=== PATIENT | female | born 1955 | race Caucasian/White ===

== ENCOUNTER 2023-07-16 09:20 | Outpatient (AMB) | payer MEDICARE, SELFPAY ==
[2023-07-16 09:23] VITALS: BP 118/80; PULSE 61; O2SAT 99; BMI 23.9
--- NOTE | 2023-07-16 09:23 | A.OFFVIS_ITS ---
Intake Vital Signs 07/16/23 09:23 Height 5 ft 3.5 in Weight 137 lb 0.2 oz BMI 23.9 BP 118/80 Blood Pressure Location Lt brachial Position Sitting Pulse 61 Pulse Source Pulse Oximeter Pulse Oximetry (%) 99 Oxygen Delivery Method Room Air Intake Visit Reasons: AWV Intake Note: Patient is here for an Annual Wellness Visit. 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 Patient of BREANA oLpes. Today we discussed patient's need for mammogram, bone density screening, colon cancer screening, lipid blood work, and diabetes screening. Up-to-date with immunizations. [place] of care was reviewed with the patient and she was provided with a screening schedule. Patient has a healthcare proxy in place and she was provided with a MOLST form. In addition, patient reports random forgetfulness in the past 6 months, would like to be evaluated for this. She also reports that 6 years ago she was stung by a wasp and her arm swelled up at that time she was given EpiPen, she needs prescription for a new EpiPen. ON LICENSE OF [facility] Medical History (Updated 07/16/23 @ 10:00 by FRANCIA Wooten) Cervical cancer screening Abdominal pain Surgical History History of tonsillectomy and adenoidectomy S/P CABG x 3 History of cardiac catheterization History of wisdom tooth extraction Family History Father CHF (congestive heart failure) CVD (cardiovascular disease) Hypertension Mother Hypertension CVD (cardiovascular disease) Diabetes Maternal Grandmother CVD (cardiovascular disease) Sister Hypothyroid Anxiety Social History Housing: Apartment Alcohol intake: current Alcohol intake frequency: a few times a month Patient Tobacco Use Status: Never used Tobacco e-Cigarette/Vaping Use: Never Used Second Hand Smoke Exposure: Yes service: No Current occupational status: unemployed Questionnaire Medicare Wellness Checkup [age] What gender do you identify with?: female During the past 4 weeks, how much have you been bothered by emotional problems such as feeling anxious, depressed, irritable, sad or downhearted, and blue?: slightly During the past 4 weeks, has your physical & emotional health limited your social activities with family, friends, neighbors, or groups?: not at all During the past 4 weeks, how much bodily pain have you generally had?: very mild pain During the past 4 weeks, was someone available to help you if you needed & wanted help?: yes, as much as I wanted During the past 4 weeks, what was the hardest physical activity you could do for at least 2 minutes?: moderate Can you get to places out of walking distance without help? (For eg., can you travel alone on buses, taxis or drive your car?): Yes Can you go shopping for groceries or clothes without someone's help?: Yes Can you prepare your own meals?: Yes Can you do your housework without help?: Yes Because of any health problems, do you need the help of another person with your personal care needs such as eating, bathing, dressing or getting around the house?: No Can you handle your own money without help?: Yes During the past 4 weeks, how would you rate your health in general?: very good During the past 4 weeks how have things been going for you?: pretty well Are you having difficulties driving your car?: no Do you always fasten your seat belt when you are in a car?: yes, usually During past 4 weeks, have you been bothered by the following: never: Falling or dizzy when standing up, Sexual problems? and Problems using the telephone?, seldom: Trouble eating well? and Teeth or denture problems? and sometimes: Tiredness or fatigue? Have you fallen 2 or more times in the past year?: No Are you afraid of falling?: No Are you a smoker?: no During the past 4 weeks, how many drinks of wine, beer, or other alcoholic beverages did you have?: 2-5 drinks per week Do you exercise for about 20 minutes 3 or more times a week?: yes, most of the time Have you been given information to help with the following?: yes: Keeping track of your medications? and no: Hazards in your house that might hurt you? How often do you have trouble taking medicines the way you have been told to take them?: I always take medicine as prescribed How confident are you that you can control & manage most of your health problems?: very confident What is your race?: White Mini Mental State Exam (MMSE) Orientation What is the (year) (season) (date) (day) (month)?: year, season, date, day and month Score Score: 5 Activity of Daily Living Bathing - sponge bath, tub bath or shower: receives no assistance (gets in/out by self, if usual bathing means Dressing - getting clothes from closets & drawers, including inner/outer garments & fasteners.: gets clothes & gets completely dressed without help Toileting - going to the 'toilet room' for urine/bowel elimination & cleaning self/arranging clothes: goes to toilet room, cleans self, arranges clothes without help Transfer: moves in & out of bed and chair without help (may use support object) Continence: controls urination/bowel movements completely by self Feeding: feeds self without help Total Score: 0 Information obtained from: patient Using telephone: independent Traveling: independent Shopping: independent Preparing meals: independent Housework: independent Taking medicine: independent Managing money: independent PHQ-9 Over the last 2 weeks, how often have you been bothered by any of the following problems? 1. Little interest or pleasure in doing things: not at all 2. Feeling down, depressed, or hopeless: not at all 3. Trouble falling or staying asleep, or sleeping too much: not at all 4. Feeling tired or having little energy: several days 5. Poor appetite or overeating: not at all 6. Feeling bad about yourself - or that you are a failure or have let yourself or your family down: not at all 7. Trouble concentrating on things, such as reading the newspaper or watching television: not at all 8. Moving or speaking so slowly that other people could have noticed. Or the opposite - being so fidgety or restless that you have been moving around a lot more than usual: not at all 9. Thoughts that you would be better off or of hurting yourself in some way: not at all Total score: 1 Depression Screening Interpretation: Negative Depression Screening Done: Yes 77781 - PHQ-9 Billing: Yes Source: Developed by Drs. Nash Boateng, Josephine López, Aj Lomax and colleagues, with an educational scarlett from [employer]. Review of Systems Neuro Reports as per HPI Physical Exam Vital Signs: Last Vital Signs Pulse 61 07/16/23 09:23 BP 118/80 07/16/23 09:23 Pulse Ox 99 07/16/23 09:23 Oxygen Delivery Method Room Air 07/16/23 09:23 BMI result Body Mass Index 23.9 Const General: cooperative and no acute distress Orientation/consciousness: patient oriented x3 HEENT Other: Whisper test: pass Head: Yes normocephalic and Yes atraumatic Eyes General: appearance normal, both eyes and all related structures Resp Auscultation: clear to auscultation bilaterally Cardio Rate: regular rate Rhythm: regular rhythm Heart sounds: S1 normal heart sound present and S2 normal heart sound present GI Auscultation: normal bowel sounds Neuro Other: Balance: Normal Get up and walk: able to Romberg: negative Tandem gait: able to General: patient oriented x3 Assessment & Plan Assessment & Plan (1) Adult general medical exam: Code(s): Z00.00 - Encounter for general adult medical examination without abnormal findings Plan: Repeat in 1 year (2) Post-menopausal: Code(s): Z78.0 - Asymptomatic menopausal state Plan: Bone density screen ordered (3) Screening for breast cancer: Code(s): Z12.39 - Encounter for other screening for malignant neoplasm of breast Plan: Mammogram ordered (4) Screening for hyperlipidemia: Code(s): Z13.220 - Encounter for screening for lipoid disorders Plan: Blood work ordered (5) Screening for diabetes mellitus: Code(s): Z13.1 - Encounter for screening for diabetes mellitus Plan: Blood work ordered (6) Screening for colon cancer: Code(s): Z12.11 - Encounter for screening for malignant neoplasm of colon Plan: GI referral (7) HTN (hypertension): Code(s): I10 - Essential (primary) hypertension Qualifiers: Hypertension type: primary hypertension Qualified Code(s): I10 - Essential (primary) hypertension Plan: Lisinopril 5 mg daily Continue low-sodium diet and exercise as tolerated Continue to follow-up with [facility] cardiology (8) TAJ (generalized anxiety disorder): Code(s): F41.1 - Generalized anxiety disorder Plan: Fluoxetine 20 mg daily (9) Allergic reaction: Code(s): T78.40XA - Allergy, unspecified, initial encounter Plan: EpiPen sent (10) Forgetfulness: Code(s): R68.89 - Other general symptoms and signs Plan: Neurology referral Orders: Orders Lipid Panel Today Z13.220 - Encounter for screening for lipoid disorders Basic Metabolic Panel Fasting Today Z13.1 - Encounter for screening for diabetes mellitus XR DEXA axial skeleton Today Z78.0 - Asymptomatic menopausal state MM tomosynthesis screening BI Today Z12.31 - Encounter for screening mammogram for malignant neoplasm of breast Referrals Gastroenterology Referral Z12.11 - Encounter for screening for malignant neoplasm of colon Neurology Referral R68.89 - Other general symptoms and signs Medications: New epinephrine (EpiPen) 0.3 mg (0.3 mL) IM Q4H PRN 2 ea 0RF anaphylaxis T78.40XA - Allergy, unspecified, initial encounter Quality Reporting (2019) Depression/Bipolar (159/160/161/177) PHQ-9: Total score: 1 Coding Level of Care Code Medicare Subsequent (G0439) Est Pt Level 3 (48954) Diagnoses Adult general medical exam Z00.00 Post-menopausal Z78.0 Screening for breast cancer Z12.39 Screening for hyperlipidemia Z13.220 Screening for diabetes mellitus Z13.1 Screening for colon cancer Z12.11 Primary hypertension I10 Hypertension type: primary hypertension TAJ (generalized anxiety disorder) F41.1 Allergic reaction T78.40XA Forgetfulness R68.89 CPT Codes Advance Care Planning - Time spent: 1-15 minutes, not on file ([id number]) Advance Care Planning Advance Care Planning discussion: Exists, not on file Date of discussion: 07/16/23 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
== END 2023-07-16 09:53 | disposition home or self-care (01) ==
PROVIDERS: PCP Physician Assistant; Visit Provider Nurse Practitioner Family
DX: Z00.00 Encounter for general adult medical examination without abnormal findings (principal); Z78.0 Asymptomatic menopausal state; Z12.39 Encounter for other screening for malignant neoplasm of breast; Z13.220 Encounter for screening for lipoid disorders; R68.89 Other general symptoms and signs; Z13.1 Encounter for screening for diabetes mellitus; Z12.11 Encounter for screening for malignant neoplasm of colon; I10 Essential (primary) hypertension; F41.1 Generalized anxiety disorder; T78.40XA Allergy, unspecified, initial encounter
CPT/HCPCS: 1124F; 99213; G0439

== ENCOUNTER 2023-09-03 07:58 | Outpatient (REF) | payer MEDICARE, SELFPAY ==
--- NOTE | ~2023-09-03 | MM_ITS ---
EXAMINATION: MM SCREENING DIGITAL BREAST TOMOSYNTHESIS, BILATERAL CLINICAL INFORMATION: Screening. Asymptomatic. COMPARISON: Mammography: There are no prior mammograms available for comparison. TECHNIQUE: Digital breast tomosynthesis is performed in both the craniocaudal and mediolateral oblique views along with computer-aided detection (CAD). Synthesized 2D images are generated from the tomosynthesis. FINDINGS: There are scattered areas of fibroglandular density (ACR BI-RADS breast composition Category b). There are no significant masses, abnormal calcifications, or other abnormalities. There are bilateral benign calcifications. MM/MM tomosynthesis screening BI IMPRESSION: No mammographic evidence of malignancy. ASSESSMENT: BI-RADS BI-RADS 2 - Benign Findings RECOMMENDATION: Routine annual mammography screening. 1 year F/U This examination should not preclude the clinical evaluation of a suspicious palpable abnormality. This patient's information was entered into a reminder system with a target due date for their next mammogram.
--- NOTE | ~2023-09-03 | MM_ITS ---
EXAMINATION: BONE DENSITOMETRY CLINICAL INDICATION: Asymptomatic menopausal state. COMPARISON: This is the patient's baseline examination. TECHNIQUE: Using a exozet DXA System (software version: 13.1) manufactured by [employer], dual-energy x-ray absorptiometry was performed of the lumbar spine and left hip. The images are of good technical quality. Summary results are attached. FINDINGS: LEFT FEMUR, NECK: BMD 0.899 g/cm2, Z-score 0.8, T-score -1.0, normal. LEFT FEMUR, TOTAL: BMD 1.006 g/cm2, Z-score 1.6, T-score 0.0, normal. AP SPINE L1-L4: BMD 1.092 g/cm2, Z-score 1.1, T-score -0.7, normal. IDENTIFIED RISK FACTORS: Menopause. HISTORY OF FRACTURE: None listed. MEDICATIONS: Vitamin D. MM/XR DEXA axial skeleton IMPRESSION: 1. DIAGNOSIS: Normal bone density based on the lowest T-score value of -1.0 in the femoral neck applying World Health Organization criteria. 2. 10-YEAR FRACTURE RISK PREDICTION, FRAX: According to the guidelines, FRAX calculation should only be performed on patients in the osteopenia bone density category. Therefore, FRAX was not performed on this patient. 3. Treatment Recommendations: NOF guidelines recommend consideration for treatment in postmenopausal women and men age 50 and older presenting with the following: -A hip or vertebral (clinical or morphometric) fracture. -T-score less than or equal to -2.5 at the femoral neck or spine after appropriate evaluation to exclude secondary causes. -Low bone mass at the hip or spine and a 10-year fracture probability by FRAX of greater than or equal to 3% for hip fracture or greater than or equal to 20% for major osteoporotic fracture based on the [place] adapted WHO algorithm. 4. Other Recommendations: All treatment decisions require clinical judgment and consideration of individual patient factors, including patient preferences, comorbidities, previous drug use, risk factors not captured in the FRAX model (e.g. frailty, falls, vitamin D deficiency, increased bone turnover, interval significant decline in bone density) and possible under or overestimation of fracture risk by FRAX. FUTURE SCAN RECOMMENDATION: People with diagnosed cases of osteoporosis or at high risk for fracture should have regular bone mineral density tests. For patients eligible for Medicare, routine testing is allowed once every 2 years. The testing frequency can be increased to one year for patients who have rapidly progressing disease, those who are receiving or discontinuing medical therapy to restore bone mass, or have additional risk factors.
== END 2023-09-03 07:59 | disposition home or self-care (01) ==
LOC: HO.MAMMO 07:58
PROVIDERS: PCP Physician Assistant; Visit Provider Nurse Practitioner Family
DX: Z12.31 Encounter for screening mammogram for malignant neoplasm of breast (principal); Z13.820 Encounter for screening for osteoporosis; Z78.0 Asymptomatic menopausal state
CPT/HCPCS: 36415; 77063; 77067; 77080; 80048; 80061

== ENCOUNTER → 2023-09-03 08:15 | Outpatient (BNV) | payer MEDICARE, SELFPAY | PROVIDERS: PCP Physician Assistant; Visit Provider Radiology Diagnostic Radiology | DX: Z12.31 Encounter for screening mammogram for malignant neoplasm of breast (principal) | CPT/HCPCS: 77063; 77067 ==

== ENCOUNTER 2023-09-03 08:39 | Outpatient (REF) | payer MEDICARE, SELFPAY ==
[2023-09-03 09:43] LABS: Anion Gap 10 (12-20); Blood Urea Nitrogen 19 mg/dL (9-16); Calcium 8.9 mg/dL (8.4-10.2); Carbon Dioxide 26 mmol/L (22-29); Chloride 108 mmol/L (96-108); Cholesterol 183 mg/dL (<200); Estimated Glomerular Filt Rate > 60; Glucose Fasting 105 mg/dL (60-99); HDL Cholesterol 58 mg/dL (>40); LDL Cholesterol Calculated 107 mg/dL (<100); Potassium 3.9 mmol/L (3.3-5.1); Sodium 140 mmol/L (135-145); Triglycerides 94 mg/dL (<150)
== END 2023-09-03 08:40 | disposition home or self-care (01) ==
LOC: HO.LAB 08:39
PROVIDERS: PCP Nurse Practitioner Family; Visit Provider Nurse Practitioner Family
DX: Z13.89 Encounter for screening for other disorder (principal)
CPT/HCPCS: 36415; 80048; 80061

== ENCOUNTER 2023-09-17 09:38 | Outpatient (REF) | payer MEDICARE, SELFPAY ==
[2023-09-17 12:45] LABS: Alanine Aminotransferase 13 U/L (0-31); Albumin Level 3.9 g/dL (3.5-5.0); Alkaline Phosphatase 79 U/L (39-117); Anion Gap 11 (12-20); Aspartate Amino Transferase 16 U/L (5-31); Bilirubin Total 0.7 mg/dL (0.0-1.0); Blood Urea Nitrogen 18 mg/dL (9-16); Calcium 9.4 mg/dL (8.4-10.2); Carbon Dioxide 27 mmol/L (22-29); Chloride 109 mmol/L (96-108); Estimated Glomerular Filt Rate > 60; Glucose Random 91 mg/dL (60-115); Magnesium 2.2 mg/dL (1.6-2.6); Potassium 4.7 mmol/L (3.3-5.1); Sodium 142 mmol/L (135-145); Total Protein 7.1 g/dL (6.5-8.0)
[2023-09-17 12:51] LABS: Folate 11.8 ng/mL (> or = 4.0); Vitamin B12 335 pg/mL (200-900)
[2023-09-25 11:24] LABS: Vitamin B1 10 nmol/L (8-30)
== END 2023-09-17 09:39 | disposition home or self-care (01) ==
LOC: HO.LAB 09:38
PROVIDERS: PCP Nurse Practitioner Family; Visit Provider Nurse Practitioner Family
DX: F10.20 Alcohol dependence, uncomplicated (principal); Z79.899 Other long term (current) drug therapy
CPT/HCPCS: 36415; 80053; 82607; 82746; 83735; 84425; 99202

== ENCOUNTER 2023-09-17 09:38 | Outpatient (AMB) | payer MEDICARE, SELFPAY ==
--- NOTE | 2023-09-17 09:39 | A.OFFVISCC_ITS ---
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 Allergies clopidogrel [From PLAVIX] Allergy (Unknown, Verified 09/17/23 09:50) HIVES Medication List - Last Reconciled 09/17/23 by Gertrude Kerr NP aspirin 81 mg PO DAILY atorvastatin 80 mg PO BEDTIME 90 days epinephrine (EpiPen) 0.3 mg (0.3 mL) IM Q4H PRN fluoxetine 20 mg PO QAM lisinopril 10 mg PO DAILY HPI MAT Intake HPI Details Patient presents to [facility] to establish care PCP- Sergio Lopes, last visit in August 2023 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 She is seeking treatment because she does not want to escalate her use. She identifies her sisters as a support system for her, but does not want to tell them yet because she does not want them constantly checking in on her Denies any other substance use She has never received treatment before for substance use She is interested in a coach cleaner referral and AA She denies hx of complicated withdrawal Denies tremor/diaphoresis/withdrawal symptoms on days she goes without drinking Behavioral Health Hx She does not have any current providers, she is looking for a therapist Provided pt with a list of resources for [facility] diagnoses: anxiety, PTSD No hx of psych hospitalizations No hx or present SI/HI Medical Hx Allergic to plavix- hives She reports heart disease and HTN- controlled with lisinopril Her treatment goal is to achieve abstinence from alcohol PFSH Medical History (Updated 09/17/23 @ 10:24 by Gertrude Kerr NP) Cervical cancer screening Abdominal pain Surgical History History of tonsillectomy and adenoidectomy S/P CABG x 3 History of cardiac catheterization History of wisdom tooth extraction Family History Father CHF (congestive heart failure) CVD (cardiovascular disease) Hypertension Mother Hypertension CVD (cardiovascular disease) Diabetes Maternal Grandmother CVD (cardiovascular disease) Sister Hypothyroid Anxiety Social History Housing: Apartment Alcohol intake: current Alcohol intake frequency: a few times a month Patient Tobacco Use Status: Never used Tobacco e-Cigarette/Vaping Use: Never Used Second Hand Smoke Exposure: Yes service: No Current occupational status: unemployed Review of Systems Const Reports as per [facility] Physical Exam Vital Signs: Last Vital Signs Pulse 75 09/17/23 09:48 BP 130/74 09/17/23 09:48 Pulse Ox 98 09/17/23 09:48 Oxygen Delivery Method Room Air 09/17/23 09:48 BMI result Body Mass Index 24.1 Const General: cooperative and healthy appearing Resp Effort & Inspection: normal respiratory effort Skin General skin exam: no rashes or lesions noted Psych Appearance: grossly normal Mental Status: mental status grossly normal Speech and movement: Normal speech and movement present Affect: normal affect Attitude: cooperative Assessment & Plan Assessment & Plan (1) Alcohol use disorder, moderate, dependence: Code(s): F10.20 - Alcohol dependence, uncomplicated Plan: -Provided list of local AA meetings -Naltrexone rx sent to pharmacy -Baseline labwork ordered to check LFTs, magnesium, folate and thiamine levels -Reviewed with her to start a B-complex vitamin and take daily -Withdrawal symptoms discussed, educated her to taper her alcohol to safely stop drinking -Referral for coach cleaner -Follow up 1 week telehealth Orders: Orders Comprehensive Met. Panel 09/17/23 F10.20 - Alcohol dependence, uncomplicated Vitamin B1 09/17/23 F10.20 - Alcohol dependence, uncomplicated Vitamin B12 and Folate 09/17/23 F10.20 - Alcohol dependence, uncomplicated Magnesium 09/17/23 F10.20 - Alcohol dependence, uncomplicated Medications: New naltrexone 1/2 for the first three day, advance to full tab if well tolerated 50 mg PO DAILY 14 tabs 0RF Coding Level of Care Code New Pt Level 4 (67809) Diagnoses Alcohol use disorder, moderate, dependence F10.20
[2023-09-17 09:48] VITALS: BP 130/74; PULSE 75; O2SAT 98; BMI 24.1
--- NOTE | 2023-09-21 12:58 | MHC.AM.SUB ---
Intake Vital Signs 09/17/23 09:48 Height 5 ft 3.5 in Weight 138 lb BMI 24.1 BP 130/74 Blood Pressure Location Lt radial Position Sitting Pulse 75 Pulse Source Pulse Oximeter Pulse Oximetry (%) 98 Oxygen Delivery Method Room Air Intake Visit Reasons: MAT Intake Allergies clopidogrel [From PLAVIX] Allergy (Unknown, Verified 09/17/23 09:50) HIVES Medication List - Last Reconciled 09/17/23 by Gertrude Kerr NP aspirin 81 mg PO DAILY atorvastatin 80 mg PO BEDTIME 90 days epinephrine (EpiPen) 0.3 mg (0.3 mL) IM Q4H PRN fluoxetine 20 mg PO QAM lisinopril 10 mg PO DAILY PFSH Medical History (Updated 09/17/23 @ 10:24 by Gertrude Kerr NP) Cervical cancer screening Abdominal pain Surgical History History of tonsillectomy and adenoidectomy S/P CABG x 3 History of cardiac catheterization History of wisdom tooth extraction Family History Father CHF (congestive heart failure) CVD (cardiovascular disease) Hypertension Mother Hypertension CVD (cardiovascular disease) Diabetes Maternal Grandmother CVD (cardiovascular disease) Sister Hypothyroid Anxiety Social History Housing: Apartment Alcohol intake: current Alcohol intake frequency: a few times a month Patient Tobacco Use Status: Never used Tobacco e-Cigarette/Vaping Use: Never Used Second Hand Smoke Exposure: Yes service: No Current occupational status: unemployed Physical Exam Vital Signs: Last Vital Signs Pulse 75 09/17/23 09:48 BP 130/74 09/17/23 09:48 Pulse Ox 98 09/17/23 09:48 Oxygen Delivery Method Room Air 09/17/23 09:48 BMI result Body Mass Index 24.1 Assessment & Plan Assessment & Plan (1) Alcohol use disorder, moderate, dependence: Code(s): F10.20 - Alcohol dependence, uncomplicated Orders: Orders Comprehensive Met. Panel 09/17/23 F10.20 - Alcohol dependence, uncomplicated Vitamin B1 09/17/23 F10.20 - Alcohol dependence, uncomplicated Vitamin B12 and Folate 09/17/23 F10.20 - Alcohol dependence, uncomplicated Magnesium 09/17/23 F10.20 - Alcohol dependence, uncomplicated Medications: New naltrexone 1/2 for the first three day, advance to full tab if well tolerated 50 mg PO DAILY 14 tabs 0RF Telehealth Telehealth Location of provider rendering services: practice address Location of patient: address on file Patient Identification confirmed using: Name, : Yes Telehealth method: voice only Patient verbally consented to treatment: Yes Patient verbally consented to billing insurance company: Yes Patient informed of any privacy concerns related to visit: Yes Minutes spent on Phone/Video with Pt.: 20 Coding Level of Care Code Tele Est Pt Level 3 (42406) Diagnoses Alcohol use disorder, moderate, dependence F10.20 Time Spent (min) 30 Comment Time spent on phone, reviewing labwork, and documenting
== END 2023-09-17 10:35 | disposition home or self-care (01) ==
PROVIDERS: PCP Nurse Practitioner Family; Visit Provider Nurse Practitioner Family
DX: F10.20 Alcohol dependence, uncomplicated (principal)
CPT/HCPCS: 99204

== ENCOUNTER 2023-09-21 09:34 | Outpatient (AMB) | payer MEDICARE, SELFPAY ==
--- NOTE | 2023-09-21 13:29 | MHC.AM.SUB ---
Intake Intake Visit Reasons: MAT Visit Allergies clopidogrel [From PLAVIX] Allergy (Unknown, Verified 09/17/23 09:50) HIVES HPI MAT Visit HPI Details Patient presents via telehealth for follow up appointment She reports she had a good weekend, she went out Wednesday night and had a few drinks with her sisters She reports she was able to keep it to only a few, and did not have any other alcoholic beverages since then She expressed gratitude for the treatment she is getting and feels knowing she has people to reach out to is going to keep her strong [facility] Medical History (Updated 09/17/23 @ 10:24 by Gertrude Kerr NP) Cervical cancer screening Abdominal pain Surgical History History of tonsillectomy and adenoidectomy S/P CABG x 3 History of cardiac catheterization History of wisdom tooth extraction Family History Father CHF (congestive heart failure) CVD (cardiovascular disease) Hypertension Mother Hypertension CVD (cardiovascular disease) Diabetes Maternal Grandmother CVD (cardiovascular disease) Sister Hypothyroid Anxiety Social History Housing: Apartment Alcohol intake: current Alcohol intake frequency: a few times a month Patient Tobacco Use Status: Never used Tobacco e-Cigarette/Vaping Use: Never Used Second Hand Smoke Exposure: Yes service: No Current occupational status: unemployed Assessment & Plan Assessment & Plan (1) Alcohol use disorder, moderate, dependence: Code(s): F10.20 - Alcohol dependence, uncomplicated Plan: -Naltrexone rx sent to alternate pharmacy -Recovery supports discussed -Follow up x 1 week Medications: New naltrexone Take 1/2 tab for the first 3 days, then progress to a full tab if well tolerated 50 mg PO DAILY 30 tabs 0RF Discontinued naltrexone 1/2 for the first three day, advance to full tab if well tolerated Discontinued Reason: None 50 mg PO DAILY 14 tabs 0RF Telehealth Telehealth Location of provider rendering services: practice address Location of patient: address on file Patient Identification confirmed using: Name, : Yes Telehealth method: voice only Patient verbally consented to treatment: Yes Patient verbally consented to billing insurance company: Yes Patient informed of any privacy concerns related to visit: Yes Minutes spent on Phone/Video with Pt.: 15 Coding Level of Care Code Tele Est Pt Level 2 (47680) Diagnoses Alcohol use disorder, moderate, dependence F10.20
== END 2023-09-21 10:39 | disposition home or self-care (01) ==
PROVIDERS: PCP Nurse Practitioner Family; Visit Provider Nurse Practitioner Family
DX: F10.20 Alcohol dependence, uncomplicated (principal)
CPT/HCPCS: 99442

== ENCOUNTER → 2023-09-21 09:34 | Outpatient (BNVA) | payer MEDICARE, SELFPAY | PROVIDERS: PCP Nurse Practitioner Family; Visit Provider Nurse Practitioner Family | DX: F10.20 Alcohol dependence, uncomplicated (principal) ==

== ENCOUNTER 2023-09-28 10:09 | Outpatient (AMB) | payer MEDICARE, SELFPAY ==
--- NOTE | 2023-09-28 11:16 | MHC.AM.SUB ---
Intake Intake Visit Reasons: MAT Visit Allergies clopidogrel [From PLAVIX] Allergy (Unknown, Verified 09/17/23 09:50) HIVES HPI MAT Visit HPI Details Patient presents for follow up via telehealth She reports she took a full tab of naltrexone on Wednesday and felt nauseated all day Wednesday She has only had a beer in the last week Reports her cravings have decreased States she feels good knowing she has the support of the clinic if she needs it PFSH Medical History (Updated 09/17/23 @ 10:24 by Gertrude Kerr NP) Cervical cancer screening Abdominal pain Surgical History History of tonsillectomy and adenoidectomy S/P CABG x 3 History of cardiac catheterization History of wisdom tooth extraction Family History Father CHF (congestive heart failure) CVD (cardiovascular disease) Hypertension Mother Hypertension CVD (cardiovascular disease) Diabetes Maternal Grandmother CVD (cardiovascular disease) Sister Hypothyroid Anxiety Social History Housing: Apartment Alcohol intake: current Alcohol intake frequency: a few times a month Patient Tobacco Use Status: Never used Tobacco e-Cigarette/Vaping Use: Never Used Second Hand Smoke Exposure: Yes service: No Current occupational status: unemployed Review of Systems Const Reports as per HPI Assessment & Plan Assessment & Plan (1) Alcohol use disorder, moderate, dependence: Code(s): F10.20 - Alcohol dependence, uncomplicated Plan: -Reviewed with her to only take half of a naltrexone pill for the first few days -Discussed with her there are other treatment options if she is unable to tolerate the naltrexone -Follow up telehealth 1 week Telehealth Telehealth Location of provider rendering services: practice address Location of patient: address on file Patient Identification confirmed using: Name, : Yes Telehealth method: voice only Patient verbally consented to treatment: Yes Patient verbally consented to billing insurance company: Yes Patient informed of any privacy concerns related to visit: Yes Minutes spent on Phone/Video with Pt.: 10 Coding Level of Care Code Tele Est Pt Level 2 (84920) Diagnoses Alcohol use disorder, moderate, dependence F10.20 Time Spent (min) 20
== END 2023-09-28 10:26 | disposition home or self-care (01) ==
LOC: HO.HCC 10:10
PROVIDERS: PCP Nurse Practitioner Family; Visit Provider Nurse Practitioner Family
DX: F10.20 Alcohol dependence, uncomplicated (principal)
CPT/HCPCS: 99441

== ENCOUNTER → 2023-09-28 10:09 | Outpatient (BNVA) | payer MEDICARE, SELFPAY | PROVIDERS: PCP Nurse Practitioner Family; Visit Provider Nurse Practitioner Family | DX: F10.20 Alcohol dependence, uncomplicated (principal) ==

== ENCOUNTER 2023-10-04 09:29 | Outpatient (AMB) | payer MEDICARE, SELFPAY ==
--- NOTE | 2023-10-04 09:40 | A.OFFVISCC_ITS ---
Intake Intake Visit Reasons: mat visit Allergies clopidogrel [From PLAVIX] Allergy (Unknown, Verified 09/17/23 09:50) HIVES HPI mat visit HPI Details Patient presents via telehealth for treatment and followup She reports she had a uneventful past week, her sister was [place] from [place] so she spent time with family She took 1/4 tab of naltrexone yesterday and tolerated it well, she reports she was trying to time taking it in a way where she wouldn't get nauseated She reports feeling better physically, and has had minimal cravings for alcohol. She reports she did have a small, 1/8th of a glass of cognac with her sisters Reports her sisters are aware of her efforts to scale back alcohol use and are supportive [facility] Medical History (Updated 09/17/23 @ 10:24 by Gertrude Kerr NP) Cervical cancer screening Abdominal pain Surgical History History of tonsillectomy and adenoidectomy S/P CABG x 3 History of cardiac catheterization History of wisdom tooth extraction Family History Father CHF (congestive heart failure) CVD (cardiovascular disease) Hypertension Mother Hypertension CVD (cardiovascular disease) Diabetes Maternal Grandmother CVD (cardiovascular disease) Sister Hypothyroid Anxiety Social History Housing: Apartment Alcohol intake: current Alcohol intake frequency: a few times a month Patient Tobacco Use Status: Never used Tobacco e-Cigarette/Vaping Use: Never Used Second Hand Smoke Exposure: Yes service: No Current occupational status: unemployed Review of Systems [employer] Reports as per HPI Assessment & Plan Assessment & Plan (1) Alcohol use disorder, moderate, dependence: Code(s): F10.20 - Alcohol dependence, uncomplicated Plan: -Encouraged patient to continue taking 1/4 tab for 1-2 more days, then progress to 1/2 tab. If able to tolerate 1/2 tab, she can progress to full tab -Reviewed recovery supports -Follow up 2 weeks Telehealth Telehealth Location of provider rendering services: practice address Location of patient: address on file Patient Identification confirmed using: Name, : Yes Telehealth method: voice only Patient verbally consented to treatment: Yes Patient verbally consented to billing insurance company: Yes Patient informed of any privacy concerns related to visit: Yes Minutes spent on Phone/Video with Pt.: 10 Coding Level of Care Code Tele Est Pt Level 2 (95962) Diagnoses Alcohol use disorder, moderate, dependence F10.20 Time Spent (min) 20
== END 2023-10-04 09:42 | disposition home or self-care (01) ==
LOC: HO.HCC 09:30
PROVIDERS: PCP Nurse Practitioner Family; Visit Provider Nurse Practitioner Family
DX: F10.20 Alcohol dependence, uncomplicated (principal)
CPT/HCPCS: 99441

== ENCOUNTER → 2023-10-04 09:29 | Outpatient (BNVA) | payer MEDICARE, SELFPAY | PROVIDERS: PCP Nurse Practitioner Family; Visit Provider Nurse Practitioner Family ==

== ENCOUNTER 2023-10-08 10:58 | Outpatient (AMB) | payer MEDICARE, SELFPAY ==
--- NOTE | 2023-10-08 11:04 | A.OFFVIS_ITS ---
Intake Vital Signs 3 10/08/23 11:15 Height 5 ft 3.5 in Weight 141 lb 8.588 oz BMI 24.7 BP 129/74 Blood Pressure Location Lt brachial Position Sitting Pulse 63 Intake Visit Reasons: Colonoscopy Screening Intake Note: New patient in office for colonoscopy screening. CC: Patient denies having GI symptoms today. She has never had a colonoscopy done before. Allergies clopidogrel [From PLAVIX] Allergy (Unknown, Verified 10/08/23 11:17) HIVES HPI Colonoscopy Screening 2 HPI0 Details 68-year-old female here for [facility]ced[facility] to discuss a screening colonoscopy. She is [place] Gladys Mcc[place] [facility] [place]. PMX Hypertension Coronary artery disease High cholesterol Alcohol use disorder moderate Memory problems Generalized anxiety disorder * SURGICAL HISTORY CABG x3 Tonsillectomy and adenoidectomy Cardiac catheterization [place] teeth extraction * ALLERGIES PLAVIX * [facility] LABS: Laboratory Tests 09/17/23 10:55 Estimated GFR > 60 Total Bilirubin 0.7 AST 16 ALT 13 Alkaline Phosphata se 79 TODAY'S VISIT This is her first colonoscopy. She tried doing one earlier but got sick from the prep. No prior problems with anesthesia or sedation. No current cardiac or respiratory problems. No ID problems. There is no known FHX of CRC or polyps. [facility] Medical History Adult general medical exam Screening for breast cancer Screening for hyperlipidemia Screening for diabetes mellitus Screening for colon cancer Cervical cancer screening Abdominal pain Surgical History History of tonsillectomy and adenoidectomy S/P CABG x 3 History of cardiac catheterization History of wisdom tooth extraction Family History Father CHF (congestive heart failure) CVD (cardiovascular disease) Hypertension Mother Hypertension CVD (cardiovascular disease) Diabetes Maternal Grandmother CVD (cardiovascular disease) Sister Hypothyroid Anxiety Sister Breast cancer Social History Housing: Apartment Alcohol intake: current Alcohol intake frequency: a few times a month Patient Tobacco Use Status: Never used Tobacco e-Cigarette/Vaping Use: Never Used Second Hand Smoke Exposure: Yes service: No Current occupational status: unemployed Review of Systems Const Denies fatigue, Denies fever(s), Denies night sweats, Denies poor appetite and Denies weight loss Eyes Details: glasses Reports requires corrective lenses ENT Reports Normal hearing present, Denies dental pain, Denies dysphagia, Denies hearing loss, Denies mouth pain, Denies odynophagia, Denies throat swelling, Denies tongue swelling and Reports other (Dentition adequate) Card Reports no additional complaints Resp Reports no additional complaints GI Details: Denies abdominal pain, Denies melena, Denies bloating, Denies hematochezia, Denies constipation, Denies GI cramping, Denies dysphagia, Denies excessive flatus, Denies early satiety, Denies heartburn, Denies diarrhea, Denies nausea, Denies odynophagia, Denies vomiting and Denies hematemesis Skin/Breast Denies pruritus, Denies lesions, Denies rash and Denies jaundice Neuro Reports Normal hearing present and Denies Abnormal speech present Endo Denies fatigue Aller/Immun Denies throat swelling and Denies tongue swelling Physical Exam Vital Signs: Last Vital Signs Pulse 63 10/08/23 11:15 BP 129/74 10/08/23 11:15 BMI result Body Mass Index 24.7 Const General: cooperative, no acute distress, well developed and well groomed Nutritional Appearance: average body habitus and well nourished Orientation/consciousness: oriented to person, oriented to place and oriented to time Limitations: No language barrier HEENT Head: Yes normocephalic and Yes atraumatic Eyes General: appearance normal, both eyes and all related structures Pupils: Equal, round and reactive pupils present Neck Neck: Yes normal visual inspection and Yes no lymphadenopathy Thyroid: Thyroid normal Resp Effort & Inspection: normal respiratory effort and able to speak in complete sentences Auscultation: clear to auscultation bilaterally Cardio Rate: regular rate Rhythm: regular rhythm Heart sounds: Normal, physiologic split S2 sound present Peripheral pulses: radial pulses present and posterior tibial pulses present GI Inspection: No distended and No Abdominal panniculus present Palpation (GI): Soft to palpation, nontender, no guarding, not rigid and No hepatosplenomegaly present Percussion: Yes normal to percussion Auscultation: normal bowel sounds Rectal Exam - Female: deferred Abdomen image: 2 1. surgical scar 2. Skin General skin exam: no rashes or lesions noted, turgor normal, skin not dry, no jaundice, No spider nevi and no striae Rashes: no rashes Nails: normal Neuro General: oriented to person, oriented to place and oriented to time Cranial nerves: Yes Equal, round and reactive pupils present and Yes Normal hearing present Speech: No Abnormal speech present Extrem General: Yes normal to inspection, No clubbing, No cyanosis and No edema Psych Appearance: grossly normal and well kempt Mental Status: mental status grossly normal Speech and movement: Normal speech and movement present Affect: normal affect Attitude: cooperative Thought process: Normal thought process present and not confabulating Thought content: Normal thought content present Insight: Fair insight present (Psych) Judgement: Fair judgement present (Psych) Assessment & Plan Assessment & Plan (1) Pre-op examination: Code(s): Z01.818 - Encounter for other preprocedural examination (2) Alcohol use disorder, moderate, dependence: Code(s): F10.20 - Alcohol dependence, uncomplicated Plan This is her first colonoscopy. She tried doing one earlier but got sick from the prep. No prior problems with anesthesia or sedation. No current cardiac or respiratory problems. No ID problems. There is no known FHX of CRC or polyps. Orders: Orders 2 Colonoscopy - GI Use Only 10/08/23 Z01.818 - Encounter for other preprocedural examination Medications: New 2 sodium,potassium,mag sulfates 17.5-3.13-1.6 gram (Suprep Bowel Prep Kit) 480 mL orally; 354 mL 0RF Coding Level of Care Code New Pt Level 3 (06795) Diagnoses Pre-op examination Z01.818 Alcohol use disorder, moderate, dependence F10.20
[2023-10-08 11:15] VITALS: BP 129/74; PULSE 63; BMI 24.7
== END 2023-10-08 11:50 | disposition home or self-care (01) ==
PROVIDERS: PCP Physician Assistant; Visit Provider Nurse Practitioner
DX: Z01.818 Encounter for other preprocedural examination (principal); Z12.11 Encounter for screening for malignant neoplasm of colon; F10.20 Alcohol dependence, uncomplicated
CPT/HCPCS: 99203; 99213

== ENCOUNTER → 2023-10-08 10:58 | Outpatient (BNVA) | payer MEDICARE, SELFPAY | PROVIDERS: PCP Physician Assistant; Visit Provider Nurse Practitioner | DX: Z01.818 Encounter for other preprocedural examination (principal); F10.20 Alcohol dependence, uncomplicated | CPT/HCPCS: 99202 ==

== ENCOUNTER 2023-10-22 09:31 | Outpatient (AMB) | payer MEDICARE, SELFPAY ==
--- NOTE | 2023-10-22 09:32 | MHC.AM.SUB ---
Intake Vital Signs 10/22/23 09:37 BP 136/82 Blood Pressure Location Lt radial Position Sitting Pulse 80 Pulse Source Pulse Oximeter Pulse Oximetry (%) 98 Oxygen Delivery Method Room Air Intake Visit Reasons: mat visit Intake Note: The patient presents fort a mat visit Allergies clopidogrel [From PLAVIX] Allergy (Unknown, Verified 10/08/23 11:17) HIVES Do you need a note to return to daycare/school/sports/work: No HPI mat visit HPI Details Pt reports for treatment and follow up She reports she is doing well with her recovery, has only had 1 social drink on 2 separate occasions in the month since starting treatment She is taking 1/4 tab of naltrexone with good effect Reports occasional cravings for a glass of wine at the end of the day Doing well overall [facility] Medical History Adult general medical exam Screening for breast cancer Screening for hyperlipidemia Screening for diabetes mellitus Screening for colon cancer Cervical cancer screening Abdominal pain Surgical History History of tonsillectomy and adenoidectomy S/P CABG x 3 History of cardiac catheterization History of wisdom tooth extraction Family History Father CHF (congestive heart failure) CVD (cardiovascular disease) Hypertension Mother Hypertension CVD (cardiovascular disease) Diabetes Maternal Grandmother CVD (cardiovascular disease) Sister Hypothyroid Anxiety Sister Breast cancer Social History Housing: Apartment Alcohol intake: current Alcohol intake frequency: a few times a month Patient Tobacco Use Status: Never used Tobacco e-Cigarette/Vaping Use: Never Used Second Hand Smoke Exposure: Yes service: No Current occupational status: unemployed Review of Systems Const Reports as per HPI Physical Exam Vital Signs: Last Vital Signs Pulse 80 10/22/23 09:37 BP 136/82 10/22/23 09:37 Pulse Ox 98 10/22/23 09:37 Oxygen Delivery Method Room Air 10/22/23 09:37 Const General: cooperative and comfortable Resp Effort & Inspection: normal respiratory effort Psych Appearance: grossly normal Mental Status: mental status grossly normal Speech and movement: Normal speech and movement present Affect: normal affect Attitude: cooperative Assessment & Plan Assessment & Plan (1) Alcohol use disorder, moderate, dependence: Code(s): F10.20 - Alcohol dependence, uncomplicated Plan: -Follow up 2 weeks -Continue naltrexone as tolerated Coding Level of Care Code Est Pt Level 3 (60259) Diagnoses Alcohol use disorder, moderate, dependence F10.20
[2023-10-22 09:37] VITALS: BP 136/82; PULSE 80; O2SAT 98
== END 2023-10-22 09:57 | disposition home or self-care (01) ==
PROVIDERS: PCP Nurse Practitioner Family; Visit Provider Nurse Practitioner Family
DX: F10.20 Alcohol dependence, uncomplicated (principal)
CPT/HCPCS: 99213

== ENCOUNTER → 2023-10-22 09:31 | Outpatient (BNVA) | payer MEDICARE, SELFPAY | PROVIDERS: PCP Nurse Practitioner Family; Visit Provider Nurse Practitioner Family | DX: F10.20 Alcohol dependence, uncomplicated (principal); Z79.899 Other long term (current) drug therapy | CPT/HCPCS: 99212 ==

== ENCOUNTER 2023-11-19 09:03 | Outpatient (AMB) | payer MEDICARE, SELFPAY ==
--- NOTE | 2023-11-19 09:19 | A.OFFVISCC_ITS ---
Intake Visit Reasons: mat visit Allergies clopidogrel [From PLAVIX] Allergy (Unknown, Verified 10/08/23 11:17) HIVES [facility] HPI mat visit: Details: Patient presents via telehealth States she has been doing well in this past month Has not been drinking at home Occasinally goes out and has a single drink with friends She hasn't felt the need to have more drinks after having the one Had a difficult day at work yesterday, had a fleeting thought that maybe a glass of wine after work would be good She then recognized that it was an old pattern of thinking and was able to challenge it. Feels as though when she thinks about the taste of wine that she has an aversion to it now Feels as though the naltrexone is working, taking 25mg a day and tolerating well. [facility], [facility] Medical History Adult general medical exam Screening for breast cancer Screening for hyperlipidemia Screening for diabetes mellitus Screening for colon cancer Cervical cancer screening Abdominal pain Surgical History History of tonsillectomy and adenoidectomy S/P CABG x 3 History of cardiac catheterization History of wisdom tooth extraction Family History Father CHF (congestive heart failure) CVD (cardiovascular disease) Hypertension Mother Hypertension CVD (cardiovascular disease) Diabetes Maternal Grandmother CVD (cardiovascular disease) Sister Hypothyroid Anxiety Sister Breast cancer Social History Housing: Apartment Alcohol intake: current Alcohol intake frequency: a few times a month Patient Tobacco Use Status: Never used Tobacco e-Cigarette/Vaping Use: Never Used Second Hand Smoke Exposure: Yes service: No Current occupational status: unemployed Review of Systems Const Reports as per HPI Telehealth Telehealth Location of provider rendering services: practice address Location of patient: address on file Patient Identification confirmed using: Name, : Yes Telehealth method: voice only Patient verbally consented to treatment: Yes Patient verbally consented to billing insurance company: Yes Patient informed of any privacy concerns related to visit: Yes Minutes spent on Phone/Video with Pt.: 15 Assessment & Plan Assessment & Plan (1) Alcohol use disorder, moderate, dependence: Code(s): F10.20 - Alcohol dependence, uncomplicated Category: Medical Plan: -Follow up 1 month -Naltrexone refill sent to pharmacy -Call [facility] if any questions or concerns in the meantime Medications: Refilled naltrexone Take 1/2 tab for the first 3 days, then progress to a full tab if well tolerated 50 mg PO DAILY 30 tabs 1RF naltrexone Take 1/2 tab for the first 3 days, then progress to a full tab if well tolerated 50 mg PO DAILY 30 tabs 1RF
== END 2023-11-19 09:19 | disposition home or self-care (01) ==
LOC: HO.HCC 09:04
PROVIDERS: PCP Nurse Practitioner Family; Visit Provider Nurse Practitioner Family
DX: F10.20 Alcohol dependence, uncomplicated (principal)
CPT/HCPCS: 99442

== ENCOUNTER → 2023-11-19 09:03 | Outpatient (BNVA) | payer MEDICARE, SELFPAY | PROVIDERS: PCP Nurse Practitioner Family; Visit Provider Nurse Practitioner Family ==

== ENCOUNTER 2023-12-13 08:05 | Outpatient (AMB) | payer MEDICARE, SELFPAY ==
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
[2023-12-13 08:11] VITALS: BP 130/72; PULSE 61; RESP 16; O2SAT 99; BMI 24.4
== END 2023-12-13 08:56 | disposition home or self-care (01) ==
PROVIDERS: PCP Physician Assistant; Visit Provider Psychiatry & Neurology Neurology
DX: R41.3 Other amnesia (principal); R25.1 Tremor, unspecified; R06.83 Snoring; G47.10 Hypersomnia, unspecified; F41.9 Anxiety disorder, unspecified
CPT/HCPCS: 99204

== ENCOUNTER → 2023-12-13 08:05 | Outpatient (BNVA) | payer MEDICARE, SELFPAY | PROVIDERS: PCP Physician Assistant; Visit Provider Psychiatry & Neurology Neurology | DX: R41.3 Other amnesia (principal); R25.1 Tremor, unspecified; R06.83 Snoring; F41.9 Anxiety disorder, unspecified; G47.10 Hypersomnia, unspecified | CPT/HCPCS: 99202 ==

== ENCOUNTER 2024-01-07 10:03 | Outpatient (AMB) | payer MEDICARE, SELFPAY ==
--- NOTE | 2024-01-07 10:03 | MHC.AM.SUB ---
Intake Visit Reasons: MAT Tele Allergies clopidogrel [From PLAVIX] Allergy (Unknown, Verified 12/13/23 08:10) HIVES HPI HPI MAT Tele: Details: Patient presents via telehealth for AUD tx and follow up Reports she has been fine with ETOH use States she did have some struggles with choosing between having fun and rewarding herself with a glass of wine and with staying on track - states she still not has bought any alcohol for home since establishing care Has gone out socially and has been able to limit how many glasses of wine she had Continues to work on limiting her alcohol use Feels less tired since she has stopped drinking wine at home, feels as though she is eating more sugar now so she is working on finding ways to eat more nutritious food She is asking today if her cravings return and or strengthen, should she try taking full tab (currently takes 1/2 tab due to GI upset) [facility] Medical History (Updated 12/13/23 @ 08:44 by Jeanne Roman MD) Anxiety Hypersomnia Snoring Occasional tremors Memory change Adult general medical exam Screening for breast cancer Screening for hyperlipidemia Screening for diabetes mellitus Screening for colon cancer Cervical cancer screening Abdominal pain Surgical History History of tonsillectomy and adenoidectomy S/P CABG x 3 History of cardiac catheterization History of wisdom tooth extraction Family History Father CHF (congestive heart failure) CVD (cardiovascular disease) Hypertension Mother Hypertension CVD (cardiovascular disease) Diabetes Maternal Grandmother CVD (cardiovascular disease) Sister Hypothyroid Anxiety Sister Breast cancer Social History Housing: Apartment Alcohol intake: current Alcohol intake frequency: a few times a month Patient Tobacco Use Status: Never used Tobacco e-Cigarette/Vaping Use: Never Used Second Hand Smoke Exposure: Yes service: No Current occupational status: unemployed Review of Systems Const Reports as per HPI Telehealth Telehealth Telehealth Platform: Telephone Location of provider rendering services: practice address Location of patient: address on file Patient Identification confirmed using: Name, : Yes Telehealth method: voice only Patient verbally consented to treatment: Yes Patient informed of any privacy concerns related to visit: Yes Minutes spent on Phone/Video with Pt.: 20 Assessment & Plan Assessment & Plan (1) Alcohol use disorder, moderate, dependence: Code(s): F10.20 - Alcohol dependence, uncomplicated Category: Medical Plan: -Follow up 1 month -No refill needed at this time -Discussed with her trialing 1/2 BID, or trying full tab to see how she tolerates -Call [facility] if any questions or concerns in the meantime
== END 2024-01-07 10:22 | disposition home or self-care (01) ==
LOC: HO.HCC 10:03
PROVIDERS: PCP Physician Assistant; Visit Provider Nurse Practitioner Family
DX: F10.20 Alcohol dependence, uncomplicated (principal)
CPT/HCPCS: 99442

== ENCOUNTER → 2024-01-07 10:03 | Outpatient (BNVA) | payer MEDICARE, SELFPAY | PROVIDERS: PCP Physician Assistant; Visit Provider Nurse Practitioner Family ==

== ENCOUNTER 2024-01-31 08:53 | Outpatient (AMB) | payer MEDICARE, SELFPAY ==
--- NOTE | 2024-02-01 15:32 | A.OFFVISCC_ITS ---
Intake Visit Reasons: MAT Tele Allergies clopidogrel [From PLAVIX] Allergy (Unknown, Verified 12/13/23 08:10) HIVES HPI HPI MAT Tele: Details: Patient presents for follow up via telehealth Reports she drank too much one day and felt not good about this has been working to explore her relationship with alcohol and working towards the possibility of it not being a part of her life shared with family her current journey [facility] Medical History (Updated 12/13/23 @ 08:44 by Jeanne Roman MD) Anxiety Hypersomnia Snoring Occasional tremors Memory change Adult general medical exam Screening for breast cancer Screening for hyperlipidemia Screening for diabetes mellitus Screening for colon cancer Cervical cancer screening Abdominal pain Surgical History History of tonsillectomy and adenoidectomy S/P CABG x 3 History of cardiac catheterization History of wisdom tooth extraction Family History Father CHF (congestive heart failure) CVD (cardiovascular disease) Hypertension Mother Hypertension CVD (cardiovascular disease) Diabetes Maternal Grandmother CVD (cardiovascular disease) Sister Hypothyroid Anxiety Sister Breast cancer Social History Housing: Apartment Alcohol intake: current Alcohol intake frequency: a few times a month Patient Tobacco Use Status: Never used Tobacco e-Cigarette/Vaping Use: Never Used Second Hand Smoke Exposure: Yes service: No Current occupational status: unemployed Review of Systems [employer] Reports as per HPI and Reports no additional complaints Telehealth Telehealth Telehealth Platform: Telephone Location of provider rendering services: practice address Location of patient: address on file Patient Identification confirmed using: Name, : Yes Telehealth method: voice only Patient verbally consented to treatment: Yes Patient verbally consented to billing insurance company: Yes Patient informed of any privacy concerns related to visit: Yes Minutes spent on Phone/Video with Pt.: 20 Assessment & Plan Assessment & Plan (1) Alcohol use disorder, moderate, dependence: Code(s): F10.20 - Alcohol dependence, uncomplicated Category: Medical Plan: * will mail out resources to review related to cravings * follow up 4 weeks
== END 2024-01-31 11:15 | disposition home or self-care (01) ==
PROVIDERS: PCP Physician Assistant; Visit Provider Nurse Practitioner Psychiatric/Mental Health
DX: F10.20 Alcohol dependence, uncomplicated (principal)
CPT/HCPCS: 99442

== ENCOUNTER → 2024-01-31 08:53 | Outpatient (BNVA) | payer MEDICARE, SELFPAY | PROVIDERS: PCP Physician Assistant; Visit Provider Nurse Practitioner Psychiatric/Mental Health ==

== ENCOUNTER 2024-02-04 07:36 | Outpatient (REF) | payer MEDICARE, SELFPAY ==
--- NOTE | ~2024-02-04 | CT_ITS ---
EXAMINATION: CT HEAD WITHOUT CONTRAST CLINICAL INFORMATION: Memory changes COMPARISON: None available. TECHNIQUE: Contiguous axial imaging was performed from the skull base to vertex without intravenous administration of contrast. This CT examination was performed using dose optimization techniques as appropriate, variously including the following: *Automated exposure control *Adjustment of mA and/or kV according to patient size (this includes techniques or standardized protocols for targeted exams where dose is matched to indication/reason for exam; i.e. extremities or head) *Use of iterative reconstruction technique DLP: 818 mGy-cm FINDINGS: Mild diffuse commensurate prominence of ventricles and sulci within expected limits of normal anatomic variation is noted. No focal parenchymal lesions of the brain or abnormal extra-axial fluid collections visualized. No intracranial hemorrhage, tumors or acute infarcts noted. Minimal eccentric calcific plaque is present in the intradural segment of the left vertebral artery. Mild segmental calcific atherosclerotic plaques are present in the cavernous portions of the internal carotid arteries. The orbits and globes are normal in appearance. No extracranial soft tissue inflammatory changes visualized. No significant opacification of the visualized paranasal sinuses, mastoid air cells and middle ear cavities. No disproportionate prominence of the temporal horns of the lateral ventricles visualized to suggest hippocampal volume loss. CT/CT head/brain wo IV con IMPRESSION: Mild intracranial atherosclerosis; otherwise, normal unenhanced CT of the head.
== END 2024-02-04 07:37 | disposition home or self-care (01) ==
LOC: HO.CT 07:36
PROVIDERS: PCP Physician Assistant; Visit Provider Psychiatry & Neurology Neurology
DX: R41.3 Other amnesia (principal)
CPT/HCPCS: 70450

== ENCOUNTER → 2024-02-21 09:03 | Outpatient (REF) | payer MEDICARE, SELFPAY | LOC: HO.SL 09:03 | PROVIDERS: PCP Physician Assistant; Visit Provider Psychiatry & Neurology Neurology | DX: G47.10 Hypersomnia, unspecified (principal); R06.83 Snoring | CPT/HCPCS: 95806 ==

== ENCOUNTER 2024-02-28 08:49 | Outpatient (AMB) | payer MEDICARE, SELFPAY ==
--- NOTE | 2024-02-28 08:50 | A.OFFVISCC_ITS ---
Intake Visit Reasons: MAT Tele Allergies clopidogrel [From PLAVIX] Allergy (Unknown, Verified 12/13/23 08:10) HIVES HPI HPI MAT Tele: Details: Patient presents for follow up via telehealth Currently prescribed Naltrexone 50mg daily Reports no alcohol use doing a lot of refelction discussed recovery capitol PFSH Medical History (Updated 12/13/23 @ 08:44 by Jeanne Roman MD) Anxiety Hypersomnia Snoring Occasional tremors Memory change Adult general medical exam Screening for breast cancer Screening for hyperlipidemia Screening for diabetes mellitus Screening for colon cancer Cervical cancer screening Abdominal pain Surgical History History of tonsillectomy and adenoidectomy S/P CABG x 3 History of cardiac catheterization History of wisdom tooth extraction Family History Father CHF (congestive heart failure) CVD (cardiovascular disease) Hypertension Mother Hypertension CVD (cardiovascular disease) Diabetes Maternal Grandmother CVD (cardiovascular disease) Sister Hypothyroid Anxiety Sister Breast cancer Social History Housing: Apartment Alcohol intake: current Alcohol intake frequency: a few times a month Patient Tobacco Use Status: Never used Tobacco e-Cigarette/Vaping Use: Never Used Second Hand Smoke Exposure: Yes service: No Current occupational status: unemployed Review of Systems [employer] Reports as per HPI and Reports no additional complaints Telehealth Telehealth Telehealth Platform: Telephone Location of provider rendering services: practice address Location of patient: address on file Patient Identification confirmed using: Name, : Yes Telehealth method: voice only Patient verbally consented to treatment: Yes Patient verbally consented to billing insurance company: Yes Minutes spent on Phone/Video with Pt.: 25 Assessment & Plan Assessment & Plan (1) Alcohol use disorder, moderate, dependence: Code(s): F10.20 - Alcohol dependence, uncomplicated Category: Medical Plan: * continue naltrexone * follow up in office Medications: Changed From naltrexone Take 1/2 tab for the first 3 days, then progress to a full tab if well tolerated 50 mg PO DAILY 30 tabs 1RF To naltrexone 50 mg PO DAILY 30 tabs 1RF
== END 2024-02-28 09:21 | disposition home or self-care (01) ==
PROVIDERS: PCP Physician Assistant; Visit Provider Nurse Practitioner Psychiatric/Mental Health
DX: F10.20 Alcohol dependence, uncomplicated (principal)
CPT/HCPCS: 99443

== ENCOUNTER → 2024-02-28 08:49 | Outpatient (BNVA) | payer MEDICARE, SELFPAY | PROVIDERS: PCP Physician Assistant; Visit Provider Nurse Practitioner Psychiatric/Mental Health ==

== ENCOUNTER → 2024-03-24 19:30 | Outpatient (REF) | payer MEDICARE, SELFPAY | LOC: HO.SL 19:30 | PROVIDERS: PCP Physician Assistant; Visit Provider Psychiatry & Neurology Neurology | DX: Z13.89 Encounter for screening for other disorder (principal) ==

== ENCOUNTER 2024-04-10 08:03 | Outpatient (AMB) | payer MEDICARE, SELFPAY ==
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
[2024-04-10 08:17] VITALS: BP 118/62; PULSE 67; RESP 16; O2SAT 98; BMI 25.1
== END 2024-04-10 09:23 | disposition home or self-care (01) ==
PROVIDERS: PCP Physician Assistant; Visit Provider Psychiatry & Neurology Neurology
DX: R41.3 Other amnesia (principal); R25.1 Tremor, unspecified; F41.9 Anxiety disorder, unspecified
CPT/HCPCS: 99214; G2211

== ENCOUNTER → 2024-04-10 08:03 | Outpatient (BNVA) | payer MEDICARE, SELFPAY | PROVIDERS: PCP Physician Assistant; Visit Provider Psychiatry & Neurology Neurology | DX: R25.1 Tremor, unspecified (principal); R41.3 Other amnesia; F41.9 Anxiety disorder, unspecified | CPT/HCPCS: 99212 ==

== ENCOUNTER 2024-09-04 10:12 | Outpatient (AMB) | payer MEDICARE, SELFPAY ==
--- NOTE | 2024-09-04 10:23 | A.OFFVIS_ITS ---
Intake Vital Signs 09/04/24 10:25 Height 5 ft 3.5 in Weight 142 lb BMI 24.8 BP 120/70 Blood Pressure Location Lt brachial Position Sitting Pulse 66 Pulse Source Pulse Oximeter Temp 97.1 F Temp Source Skin Pulse Oximetry (%) 97 Oxygen Delivery Method Room Air Intake Visit Reasons: AWV Intake Note: Patient is here for an Annual Wellness Visit. It Applications Developer Required: No Inside Polisher: Inside Polisher offered & declined Accompanied by: Self / Same As Patient Allergies clopidogrel [From PLAVIX] Allergy (Unknown, Verified 09/04/24 10:35) HIVES Medication List - Last Reconciled 09/04/24 by Sergio Lopes PA-C aspirin 81 mg PO DAILY atorvastatin 80 mg PO BEDTIME 90 days epinephrine (EpiPen) 0.3 mg (0.3 mL) IM Q4H PRN fluoxetine 40 mg PO DAILY lisinopril 10 mg PO DAILY naltrexone 50 mg PO DAILY HPI AWV HPI Details Patient is a 69-year-old female here today for an annual wellness visit. Today we discussed end of life planning, specialist list, and her comprehensive care plan which was scanned into patient's documents.. Colorectal cancer screening: Has yet to be scheduled for colonoscopy. She promises to reach back out to Gastroenterology Vaccines: Up-to-date with COVID vaccine, flu vaccine, tetanus vaccine and shingles vaccine Laboratory Tests 09/03/23 09/17/23 08:55 10:55 Creatinine 0.79 Random Glucose 91 Cholesterol 183 LDL Cholesterol, C alc 107 H HPI Comments History of Present Illness Details reviewed past medical history- yes reviewed surgical / hospitalization history- yes reviewed current medications- yes reviewed family history- yes home safety throw rugs? grab bars? raised toilet seat? working smoke detectors? activities of daily living difficulty bathing or showering? difficulty dressing? difficulty using the toilet? difficulty getting in and out of bed? difficulty walking? receives help from other person's with any of the above tasks? instrumental activities of daily living uses telephone - gets to place out of walking distance- go shopping for groceries- repairs own meals- does own minor home maintenance- does own laundry- does own housework- manages own money- currently takes medication- end of life planning discussed advanced directives- yes advanced directives on file? discussed wishes expressed in advanced directives. fall risk have you had any falls with injuries in the past year? have you had 2 or more falls in the past year? fall risk assessment: [facility] Medical History Anxiety Hypersomnia Snoring Occasional tremors Memory change Adult general medical exam Screening for breast cancer Screening for hyperlipidemia Screening for diabetes mellitus Screening for colon cancer Cervical cancer screening Abdominal pain Surgical History History of tonsillectomy and adenoidectomy S/P CABG x 3 History of cardiac catheterization History of wisdom tooth extraction Family History Father CHF (congestive heart failure) CVD (cardiovascular disease) Hypertension Mother Hypertension CVD (cardiovascular disease) Diabetes Maternal Grandmother CVD (cardiovascular disease) Sister Hypothyroid Anxiety Sister Breast cancer Social History Housing: Apartment Alcohol intake: current Alcohol intake frequency: a few times a month Patient Tobacco Use Status: Never used Tobacco e-Cigarette/Vaping Use: Never Used Second Hand Smoke Exposure: Yes service: No Current occupational status: unemployed Questionnaire Medicare Wellness Checkup [age] What gender do you identify with?: female During the past 4 weeks, how much have you been bothered by emotional problems such as feeling anxious, depressed, irritable, sad or downhearted, and blue?: not at all During the past 4 weeks, has your physical & emotional health limited your social activities with family, friends, neighbors, or groups?: not at all During the past 4 weeks, how much bodily pain have you generally had?: no pain During the past 4 weeks, was someone available to help you if you needed & wanted help?: yes, as much as I wanted During the past 4 weeks, what was the hardest physical activity you could do for at least 2 minutes?: heavy Can you get to places out of walking distance without help? (For eg., can you travel alone on buses, taxis or drive your car?): Yes Can you go shopping for groceries or clothes without someone's help?: Yes Can you prepare your own meals?: Yes Can you do your housework without help?: Yes Because of any health problems, do you need the help of another person with your personal care needs such as eating, bathing, dressing or getting around the house?: No Can you handle your own money without help?: Yes During the past 4 weeks, how would you rate your health in general?: very good During the past 4 weeks how have things been going for you?: pretty well Are you having difficulties driving your car?: no Do you always fasten your seat belt when you are in a car?: yes, usually During past 4 weeks, have you been bothered by the following: never: Falling or dizzy when standing up, Sexual problems?, Trouble eating well?, Teeth or denture problems?, Problems using the telephone? and Tiredness or fatigue? Have you fallen 2 or more times in the past year?: No Are you afraid of falling?: No Are you a smoker?: no During the past 4 weeks, how many drinks of wine, beer, or other alcoholic beverages did you have?: 2-5 drinks per week Do you exercise for about 20 minutes 3 or more times a week?: yes, most of the time Have you been given information to help with the following?: no: Hazards in your house that might hurt you? and no: Keeping track of your medications? How often do you have trouble taking medicines the way you have been told to take them?: I always take medicine as prescribed How confident are you that you can control & manage most of your health problems?: very confident What is your race?: White Mini Mental State Exam (MMSE) Orientation What is the (year) (season) (date) (day) (month)?: season Where are we (state) (county) (town or city) (hospital) (floor)?: town or city Attention & Calculation (CHOOSE ONE) Spell WORLD backwards (DLROW): 5 letters Score Score: 7 Activity of Daily Living Bathing - sponge bath, tub bath or shower: receives no assistance (gets in/out by self, if usual bathing means Dressing - getting clothes from closets & drawers, including inner/outer garments & fasteners.: gets clothes & gets completely dressed without help Toileting - going to the 'toilet room' for urine/bowel elimination & cleaning self/arranging clothes: goes to toilet room, cleans self, arranges clothes without help Transfer: moves in & out of bed and chair without help (may use support object) Continence: controls urination/bowel movements completely by self Feeding: feeds self without help Total Score: 0 Information obtained from: patient Using telephone: independent Traveling: independent Shopping: independent Preparing meals: independent Housework: independent Taking medicine: independent Managing money: independent PHQ-9 Over the last 2 weeks, how often have you been bothered by any of the following problems? 1. Little interest or pleasure in doing things: not at all 2. Feeling down, depressed, or hopeless: not at all 3. Trouble falling or staying asleep, or sleeping too much: not at all 4. Feeling tired or having little energy: not at all 5. Poor appetite or overeating: not at all 6. Feeling bad about yourself - or that you are a failure or have let yourself or your family down: not at all 7. Trouble concentrating on things, such as reading the newspaper or watching television: not at all 8. Moving or speaking so slowly that other people could have noticed. Or the opposite - being so fidgety or restless that you have been moving around a lot more than usual: not at all 9. Thoughts that you would be better off or of hurting yourself in some way: not at all Total score: 0 Depression Screening Interpretation: Negative Depression Screening Done: Yes 59766 - PHQ-9 Billing: Yes Source: Developed by Drs. Nash Boateng, Josephine López, Aj Lomax and colleagues, with an educational scarlett from [employer]. Thrive Questionnaire Date Thrive assessed: 09/04/24 I am a: Patient What is your living situation today?: I have a steady place to live Within the past 12 months, did the food you bought not last and you didn't have the money to get more?: Never true Within the past 12 months, did you worry whether your food would run out before you got money to buy more?: Never true Do you have trouble paying for medicines?: No Do you have trouble getting transportation to medical appointments?: No Do you have trouble paying your heating and electricity bill?: No Do you have trouble taking care of your child, family member or friend?: No Do you have trouble with day-to-day activities such as bathing, preparing meals, shopping, managing finances, etc.?: No Are you currently unemployed and looking for a job?: No Are you interested in more education?: No Please select the resources that you would like help with: None Currently or been in a relationship where the following occur: No concerns reported THRIVE Score: 0 TAJ-7 AMB Questionnaire TAJ-7 Date TAJ - 7 assessed: 09/04/24 Feeling nervous, anxious, or on edge: 0 = Not at all Not being able to stop or control worryin = Not at all Worrying too much about different things: 0 = Not at all Trouble relaxin = Not at all Being so restless that it is hard to sit still: 0 = Not at all Becoming easily annoyed or irritable: 0 = Not at all Feeling afraid as if something awful might happen: 0 = Not at all Total TAJ-7 score (0-4 normal; 5-9 mild; 10-14 moderate; 15-21 severe): 0 Source: Developed by Drs. Nash Boateng, Josephine López, Aj Lomax and colleagues, with an educational scarlett from [employer]. TAJ-7 Assessment Billing TAJ-7 Assessment Tool: TAJ-7 Assessment 31907 AUDIT C Alcohol Use Questionnaire (AUDIT-C) 1. How often do you have a drink containing alcohol?: Monthly or less 2. How many drinks containing alcohol do you have on a typical day when you are drinking?: 1 or 2 3. How often do you have six or more drinks on one occasion?: Never Total Score: 1 Physical Exam Vital Signs: Last Vital Signs Temp 97.1 F 09/04/24 10:25 Pulse 66 09/04/24 10:25 BP 120/70 09/04/24 10:25 Pulse Ox 97 09/04/24 10:25 Oxygen Delivery Method Room Air 09/04/24 10:25 BMI result Body Mass Index 24.8 HEENT Other: hearing screening whisper test- passed Eyes Other: vision screening- 20 20 OS OD OU Other: urinary incontinence? no Neuro Other: balance Romberg- normal tandem walk test- able walk-in turned test- able rise from sit to stand- within 2 seconds Assessment & Plan Assessment & Plan (1) Annual wellness visit: Code(s): Z00.00 - Encounter for general adult medical examination without abnormal findings Plan: As per [facility] Quality Reporting (2019) Depression/Bipolar (159/160/161/177) PHQ-9: Total score: 0 Coding Level of Care Code Medicare Subsequent (G0439) Diagnoses Annual wellness visit Z00.00 CPT Codes Advance Care Planning - Time spent: 1-15 minutes, not on file ([id number]) Additional Codes TAJ-7 Assessment Billing - TAJ-7 Assessment Tool: TAJ-7 Assessment 37053 ([id number]) PHQ-9 - 81936 - PHQ-9 Billing: Yes ([id number]) Advance Care Planning Advance Care Planning discussion: Exists, not on file Date of discussion: 09/04/24 Forms completed: MOLST Time spent: 1-15 minutes, not on file Actual minutes spent: 4 Did not discuss due to Cultural/Spiritual beliefs: No
[2024-09-04 10:25] VITALS: BP 120/70; PULSE 66; TEMP 36.2; O2SAT 97; BMI 24.8
== END 2024-09-04 10:58 | disposition home or self-care (01) ==
PROVIDERS: PCP Physician Assistant; Visit Provider Physician Assistant
DX: Z00.00 Encounter for general adult medical examination without abnormal findings (principal)

== ENCOUNTER → 2024-09-04 10:12 | Outpatient (BNVA) | payer MEDICARE, SELFPAY | PROVIDERS: PCP Physician Assistant; Visit Provider Physician Assistant | DX: Z00.00 Encounter for general adult medical examination without abnormal findings (principal) | CPT/HCPCS: 96127 ==

== ENCOUNTER 2024-09-29 08:22 | Outpatient (REF) | payer MEDICARE, SELFPAY | END 2024-09-29 08:23 | disposition home or self-care (01) | LOC: HO.SH 08:22 | PROVIDERS: Visit Provider Physician Assistant | DX: Z01.118 Encounter for examination of ears and hearing with other abnormal findings (principal); H93.293 Other abnormal auditory perceptions, bilateral | CPT/HCPCS: 92557; 92567 ==